=== PATIENT | female | born 1940 | race Caucasian/White ===

== ENCOUNTER 2016-06-14 06:25 | Day surgery (SDC) | payer OTHER ==
[~2016-06-14 06:25] MED LIST: ACETSUP325 PO; ADVIL PO; ALEVE220 MG PO; ATEN25 PO; ATEN50 PO; CALTRAT600 PO; CO Q-10100 MG PO; D.O.S.100 MG PO; DYAZIDE1 CAP PO; FISH-EPA1000 MG PO; HAIR/SKIN/NAILS PO; MSCONT15 PO; MULTIVITAMI1 PO; NIACIN 500 PO; PRIN20 PO; T PO; VITAMIN D31000 UNIT PO; ZOCOR10 PO; [UNRECOGNIZED DRUG - CODE] PO
[2016-09-12] MEDS ORDERED: T PO (15:44)
[2016-09-20] MEDS ORDERED: COUMADIN3 MG (16:19)
[2016-09-20] MEDS ORDERED: PCET PO (16:19)
== END 2016-06-14 23:59 | disposition home health service (06) ==
LOC: SDC 06:25
PROVIDERS: Orthopaedic Surgery
PROC: 3E0R33Z Introduction of Anti-inflammatory into Spinal Canal, Percutaneous Approach (ICD-10-PCS; principal; 2016-06-14 08:45)
DX: M54.16 Radiculopathy, lumbar region (principal); I10 Essential (primary) hypertension; J44.9 Chronic obstructive pulmonary disease, unspecified; M19.90 Unspecified osteoarthritis, unspecified site; Z87.891 Personal history of nicotine dependence; Z90.710 Acquired absence of both cervix and uterus; Z98.890 Other specified postprocedural states
CPT/HCPCS: J1040; J1200; J2250; J2405; J3010